=== PATIENT | male | born 1985 | race Hispanic/Latino ===

== ENCOUNTER 2023-03-28 06:33 | Day surgery (SDC) | payer BC ==
[2023-03-28] MEDS ORDERED: LIDOCAINE 2% MPF 5 ML VIAL ONE (07:13)
[2023-03-28] MEDS ORDERED: FENTANYL CITR 100 MCG/2 ML ONE (07:13)
[2023-03-28] MEDS ORDERED: dexAMETHasone 10 MG/ML VIAL ONE (07:13)
[2023-03-28] MEDS ORDERED: MIDAZOLAM HCL 2 MG/2 ML INJ ONE (07:13)
[2023-03-28] MEDS ORDERED: propofoL 200 MG/20 ML VIAL IV ONE (07:13)
[2023-03-28] MEDS ORDERED: ROCURONIUM 50 MG/5 ML VIAL IV ONE (07:13)
[2023-03-28] MEDS ORDERED: Ringers Lactate 1,000 ML IV ONE (07:15)
[2023-03-28] MEDS ORDERED: ONDANSETRON 4 MG/2 ML VIAL ONE (07:15)
[2023-03-28] MEDS ORDERED: BACITRACIN OINTMENT 14 GM TUBE TOP ONE (07:23)
[2023-03-28] MEDS ORDERED: OXYMETAZOLINE HCL 0.05% 15ML NAS ONE ×2 (07:23→08:31)
[2023-03-28] MEDS ORDERED: NA CHLORIDE 0.9% 500 ML ONE (07:23)
[2023-03-28] MEDS ORDERED: LIDOCAINE HCL/EPINEPHRINE 20 ML MDV ONE (07:23)
[2023-03-28] MEDS ORDERED: CEFAZOLIN SODIUM 1 GM/VIAL ONE (09:48)
[2023-03-28 12:06] VITALS: BP 142/94; TEMP 97.2; O2SAT 98
--- NOTE | 2023-03-29 21:44 | OP ---
Date of Procedure: 03/28/2023 Surgeon: MAGEN COATS Primary Care Physician: Unknown. Preoperative Diagnoses: 1. Bilateral nasal septal deviation. 2. Bilateral nasal valve collapse. 3. Bilateral inferior turbinate hypertrophy. Postoperative Diagnoses: 1. Bilateral nasal septal deviation. 2. Bilateral nasal valve collapse. 3. Bilateral inferior turbinate hypertrophy. Procedure: 1. Bilateral nasal endoscopy. 2. Endoscopic septoplasty. 3. Bilateral inferior turbinate submucosal ablation with Coblation. 4. Bilateral Latera implant. Anesthesia: General endotracheal anesthesia was administered. I also infiltrated approximately 12 mL of 1% lidocaine with 1:100,000 epinephrine into bilateral nasal septal mucosa and bilateral inferior turbinate mucosa and bilateral nasal sidewall tissue envelope. Estimated Blood Loss: Approximately 15-20 mL. Specimens: Septal tissue. Findings: Bilateral nasal septal deviation with prominent left caudal septal cartilage buckling and a left large bony spur; moderately large right mid septal spur; bilateral inferior turbinate hypertrophy 3/4; bilateral internal nasal valve collapse, moderate. Complications: None. Disposition: Stable. The patient tolerated the procedure well. Indications For Procedure: Patient is a pleasant 37-year-old male who presented to outpatient clinic with chronic bilateral nasal obstruction secondary to a traumatic event in which he broke his nose when he was younger and he has had difficulty breathing through the nose ever since that time. He was a chronic mouth breather. Not examined in my office. He had evidence of bilateral nasal obstruction secondary to inferior turbinate hypertrophy, nasal valve collapse, which was improved with the Ashlee maneuver and moderate to severe bilateral nasal septal deviation, left worse than right. These were indications to bring the patient to proceed for the above-mentioned procedure. He understood, all questions were answered. Risks versus benefits and complications were explained in detail, and signed consent was placed in the chart. Description Of Procedure: The patient was transferred from the preoperative holding area to the operative suite by Department of Anesthesia, placed on the operating table supine, sedated and intubated in normal fashion. Table was rotated 180 degrees and head rest was placed. I infiltrated the intranasal mucosa including the nasal septum and inferior turbinate mucosa with approximately 10 mL of 1% lidocaine with 1:100,000, epinephrine. Afrin-soaked nasal pledgets were introduced into bilateral nasal cavities. Patient was then prepped and draped. The pledgets were removed and a 0-degree rigid nasal endoscope was introduced into bilateral nasal cavities in order to assess the intranasal deformity. I then used a 15 blade scalpel to make a left modified Anton incision through the nasal septal mucosa down the perichondrium of the septal cartilage. I then made a crossover incision with a #15 blade scalpel in order to isolate the cartilage bilaterally from the mucosa. The mucosa was elevated utilizing a [place] elevator. I then removed obstructive portions of the cartilage with a #15 blade scalpel and Dangelo forceps. Posteriorly, patient had 2 spurs, 1 located right mid septal area and a very large bony spur walling the posterior vomer and these were removed with a chisel hammer and Dangelo forceps. Once the obstructive portions were removed, the nasal septal mucosa was reapproximated in a box like fashion with 4-0 plain gut suture and then the mucosal incisions were reapproximated with 4-0 plain gut suture in a continuous running fashion. Next, bilateral inferior turbinate mucosa was entered with the Coblation radiofrequency wand creating a submucous pockets between the mucosa and the bone, and I advanced it posteriorly and performed a submucosal ablation of bilateral inferior turbinates on a setting of 7 for ablation and 3 for coagulation. I then gently outfractured with a [place] elevator. Next, I infiltrated approximately 2 mL 1% lidocaine with 1:100,000 epinephrine at the area of bilateral nasal ala where the Latera implant was expected to be inserted and this anesthetic was then infiltrated creating a tunnel bilaterally for the Latera implant. I then used a surgical marker to vickie the 2 areas bilaterally at the area of the nasal ala where the nasal bone and upper lateral cartilages meet. Once I was pleased with the markings, I then retracted bilateral nasal ala with double prong hooks and reflected the nasal ala anteriorly exposing the nasal vestibule, and then I inserted the Latera implant through the nasal cannula at the hairline and directed it to the area of the upper lateral cartilages and the nasal bone, thereby contacting the periosteum over the nasal bone, and I tented the skin in order to confirm that I was aware of my surgical markings had been placed. After I was pleased with the positioning, I then deployed the Latera implant and withdrew the device when I was pleased with the placement. This procedure was repeated on the other side whereby we reflected the nasal ala on the left side and inserted the device through the nasal ala at the hair line and then contacted the periosteum of the left nasal bone and deployed the implant and then withdrew the device while holding the implant in place. There was no evidence of bleeding and suture was not needed. I then coated 2 Khanna splints with antibiotic ointment and cut them down to size and then inserted them bilaterally into the nasal cavities and the splints were then secured at the caudal septum with 2.0 Prolene suture. A mustache dressing was placed. He tolerated the procedure well and was transferred back to Department of Anesthesia in stable condition. He will be discharged home on antibiotic and analgesic medication, he will follow up in 1 week or sooner if needed. PHYLLIS/MARGOT Voice ID: [id number] Report ID: [id number]
== END 2023-03-28 11:13 | disposition home or self-care (01) ==
LOC: PRE 06:33 → OR 11:13
PROVIDERS: ATTEND Otolaryngology Facial Plastic Surgery
PROC: 09SL8ZZ Reposition Nasal Turbinate, Via Natural or Artificial Opening Endoscopic (ICD-10-PCS; 2023-03-28)
PROC: 09SM4ZZ Reposition Nasal Septum, Percutaneous Endoscopic Approach (ICD-10-PCS; 2023-03-28)
PROC: 09U Ear, Nose, Sinus, Supplement (ICD-10-PCS; principal; 2023-03-28 07:45)
DX: J34.2 Deviated nasal septum (principal); J34.3 Hypertrophy of nasal turbinates; M95.0 Acquired deformity of nose
CPT/HCPCS: 30468; 30802; 30520; 88300; J2704; J2001; J2250; J3010; J1100; J2405; J7120; J7050; J0690